=== PATIENT | female | born 1995 | race Caucasian/White ===

== ENCOUNTER 2018-10-09 07:33 | Emergency (ER) | payer MEDICAID ==
[~2018-10-09] VITALS: Ht 152.4 cm; Wt 48.4 kg
[2018-10-09 07:35] VITALS: BP 102/71
== END 2018-10-09 10:13 | disposition home or self-care (01) ==
LOC: ED 08:30
DX: N39.0 Urinary tract infection, site not specified (principal); R31.9 Hematuria, unspecified; N10 Acute pyelonephritis; G40.909 Epilepsy, unspecified, not intractable, without status epilepticus
CPT/HCPCS: 36415; 76770; 80048; 81001; 81025; 82040; 85025; 87077; 87086; 96372; 99284; J0696